=== PATIENT | female | born 1980 | race Two or more races ===

== ENCOUNTER 2020-10-02 12:30 | Inpatient (IN) | payer OTHER ==
[~2020-10-02] VITALS: Ht 170.2 cm; Wt 151.5 kg
[2020-10-02] MEDS ORDERED: HYDRODIURIL12.5 MG PO (16:19)
[2020-10-02] MEDS ORDERED: VERELAN120 MG PO (16:19)
[2020-10-02] MEDS ORDERED: PROAIR RESPICL90 MCG IH (16:20)
[2020-10-02] MEDS ORDERED: ZYRTEC10 M3 PO (16:20)
== END 2020-10-09 12:44 | disposition home or self-care (01) | DRG 743 ==
LOC: OB/GYN 10-03 05:29 → O/R 10-03 05:29 → SURH 10-03 10:45 → OB/GYN 10-03 15:17 → SURG-SUITE 10-03 16:44
PROVIDERS: ADMIT Specialist; ATTEND Specialist
PROC: 0UT20ZZ Resection of Bilateral Ovaries, Open Approach (ICD-10-PCS; 2020-10-03)
PROC: 0UT70ZZ Resection of Bilateral Fallopian Tubes, Open Approach (ICD-10-PCS; 2020-10-03)
PROC: 07BC0ZZ Excision of Pelvis Lymphatic, Open Approach (ICD-10-PCS; 2020-10-03)
PROC: 0UT90ZZ Resection of Uterus, Open Approach (ICD-10-PCS; principal; 2020-10-03 10:45)
DX: D25.1 Intramural leiomyoma of uterus (principal); D25.2 Subserosal leiomyoma of uterus; N80.0 Endometriosis of uterus; N72 Inflammatory disease of cervix uteri; N83.292 Other ovarian cyst, left side; N83.291 Other ovarian cyst, right side; I10 Essential (primary) hypertension; E66.8 Other obesity; Z68.35 Body mass index [BMI] 35.0-35.9, adult